=== PATIENT | male | born 1990 | race Caucasian/White ===

== ENCOUNTER 2016-07-15 08:58 | Emergency (ER) | payer SELFPAY ==
[2016-07-15] MEDS ORDERED: OPTIRAY 350 100 ML VIAL HMH IV ONE (08:59)
[2016-07-15] MEDS ORDERED: SODIUM CHLORIDE 0.9% 1,000 ML ONE (09:56)
[2016-07-15] MEDS ORDERED: MORPHINE 4 MG/ML SYR ONE (09:56)
[2016-07-15] MEDS ORDERED: PANTOPRAZOLE 40 MG VIAL IV ONE (09:56)
[2016-07-15] MEDS ORDERED: SUCRALFATE 1 GM TAB PO ONE (13:10)
== END 2016-07-15 14:45 | disposition home or self-care (01) ==
LOC: ER 08:58
DX: K29.00 Acute gastritis without bleeding (principal)
CPT/HCPCS: 36415; 74177; 80053; 81003; 83690; 85025; 96361; 96374; 96375